=== PATIENT | male | born 1960 | race Hispanic/Latino ===

== ENCOUNTER 2019-01-10 10:42 | Emergency (ER) | payer OTHER ==
[~2019-01-10 10:42] MED LIST: CALC600T12 PO; LEVO137T24 PO; LISI10TA7 PO; LORA10TA7 PO; SILD50TA PO; albuterol hfa IH; fish oil PO; flonase NASAL
[2019-01-10 11:45] LABS: APPEARANCE,URINE Clear (CLEAR); BILIRUBIN,URINE Negative (NEGATIVE); COLOR,URINE Yellow (YELLOW); GLUCOSE, URINE (UA) 250 mg/dL (NEGATIVE); KETONES,URINE Negative (NEGATIVE); LEUKOCYTE ESTERASE ,URINE Negative (NEGATIVE); NITRATE,URINE Negative (NEGATIVE); OCCULT BLOOD,URINE Negative (NEGATIVE); PROTEIN,URINE POS 1+ (NEGATIVE); UROBILINOGEN,URINE 0.2 mg/dL (0.2-1.0)
[2019-01-10] MEDS ORDERED: SODIUM CHLORIDE 0.9% 1000ML 1,000 ML IV ONE (11:48)
[2019-01-10] MEDS ORDERED: ONDANSETRON HCL 4 MG/2 ML VIAL ONE (11:48)
[2019-01-10] MEDS ORDERED: ACETAMINOPHEN EXTRA STRENGTH 500 MG TABLET ONE (11:49)
[2019-01-10 11:56] LABS: BASOPHILS % (AUTO) 0.5 % (0.0-5.0); EOSINOPHILS % (AUTO) 1.8 % (0.0-8.0); HEMATOCRIT 48.8 % (42-54); MEAN CORPUSCULAR HEMOGLOBIN 30.6 pg (27.0-33.0); MEAN CORPUSCULAR HGB CONC 34.7 g/dL (32.0-36.0); MEAN CORPUSCULAR VOLUME 88.1 fL (79-99); MONOCYTES % (AUTO) 7.4 % (3.0-13.0); NEUTROPHILS % (AUTO) 79.3 % (40.0-77.0); PLATELET COUNT (AUTO) 327 K/uL (130-400); RED BLOOD CELL COUNT(AUTO) 5.54 MIL/uL (4.50-6.20); RED CELL DISTRIBUTION WIDTH 14.5 % (11.0-15.5); WHITE BLOOD COUNT (AUTO) 6.4 K/uL (4.8-10.8)
[2019-01-10 11:58] LABS: BACTERIA,URINE Rare /HPF (None Seen); MUCUS,URINE Moderate LPF (None Seen); RBC,URINE 0-1 /HPF (0-1); SQUAMOUS EPITHELIAL CELL,UR Rare /HPF (0-2); WBC,URINE 0-1 /HPF (0-1)
[2019-01-10 12:17] LABS: CREATININE 1.1 mg/dL (0.5-1.5); POTASSIUM 5.4 mmol/L (3.5-5.1)
[2019-01-10 12:21] LABS: BILIRUBIN,TOTAL 0.9 mg/dL (0.2-1.0); TOTAL PROTEIN, SERUM 8.6 g/dL (6.0-8.3)
[2019-01-10] MEDS ORDERED: IOHEXOL 350 MG/ML 100ML INFUS..BTL IV ONE (13:00)
[2019-01-10] MEDS ORDERED: LIDOCAINE HCL 2% VISCOUS 15 ML UDCUP ONE (14:26)
[2019-01-10] MEDS ORDERED: MAG HYDROX/AL HYDROX/SIMETH ES 30 ML SUSP UDCUP ONE (14:26)
[2019-01-10] MEDS ORDERED: KETOROLAC TROMETHAMINE 15MG/ML ONE (14:27)
== END 2019-01-10 15:30 | disposition home or self-care (01) ==
LOC: EDH 10:42
DX: J06.9 Acute upper respiratory infection, unspecified (principal); M79.605 Pain in left leg; M79.604 Pain in right leg; M54.9 Dorsalgia, unspecified; E11.9 Type 2 diabetes mellitus without complications; E78.5 Hyperlipidemia, unspecified; I10 Essential (primary) hypertension; J45.909 Unspecified asthma, uncomplicated; Z88.6 Allergy status to analgesic agent; Z88.1 Allergy status to other antibiotic agents
CPT/HCPCS: 36415; 71045; 74177; 80053; 81001; 83690; 84484; 85025; 87804 ×2; 93005; 96374; 96375; 99284; J1885; J2405; J7030; Q9967

== ENCOUNTER 2019-03-29 22:43 | Emergency (ER) | payer OTHER ==
[2019-03-29] MEDS ORDERED: METOCLOPRAMIDE 10 MG/2 ML VIAL ONE (23:19)
[2019-03-29] MEDS ORDERED: LOPERAMIDE HCL 2 MG CAP PO ONE (23:19)
[2019-03-29] MEDS ORDERED: DiphenhydrAMINE HCL 50 MG/ML VIAL ONE (23:20)
[2019-03-29] MEDS ORDERED: ONDANSETRON HCL 4 MG/2 ML VIAL ONE (23:20)
[2019-03-29] MEDS ORDERED: SODIUM CHLORIDE 0.9% 1000ML 2,000 ML IV ONE (23:20)
[2019-03-29] MEDS ORDERED: ONDANSETRON ODT 4 MG TAB ONE (23:47)
== END 2019-03-30 01:06 | disposition home or self-care (01) ==
LOC: EDH 22:43
DX: R19.7 Diarrhea, unspecified (principal); R10.84 Generalized abdominal pain; J45.909 Unspecified asthma, uncomplicated; E11.9 Type 2 diabetes mellitus without complications; I10 Essential (primary) hypertension; E78.5 Hyperlipidemia, unspecified; Z88.6 Allergy status to analgesic agent; Z88.1 Allergy status to other antibiotic agents
CPT/HCPCS: 82948; 96372 ×2; 99284; J1200; J7030; J2405; J2765

== ENCOUNTER 2019-11-05 02:55 | Emergency (ER) | payer OTHER ==
[2019-11-05] MEDS ORDERED: KETOROLAC TROMETHAMINE 30MG/ML ONE (06:04)
[2019-11-05 06:12] LABS: BASOPHILS % (AUTO) 0.9 % (0.0-5.0); EOSINOPHILS % (AUTO) 3.2 % (0.0-8.0); HEMATOCRIT 45.6 % (42-54); MEAN CORPUSCULAR HEMOGLOBIN 28.9 pg (27.0-33.0); MEAN CORPUSCULAR HGB CONC 33.6 g/dL (32.0-36.0); MEAN CORPUSCULAR VOLUME 86.2 fL (79-99); MONOCYTES % (AUTO) 10.5 % (3.0-13.0); PLATELET COUNT (AUTO) 250 K/uL (130-400); RED BLOOD CELL COUNT(AUTO) 5.29 MIL/uL (4.50-6.20); WHITE BLOOD COUNT (AUTO) 5.3 K/uL (4.8-10.8)
[2019-11-05 06:30] LABS: CREATININE 0.9 mg/dL (0.5-1.5); POTASSIUM 3.9 mmol/L (3.5-5.1)
[2019-11-05 06:34] LABS: INR 0.98 (0.85-1.15); PARTIAL THROMBOPLASTIN TIME 27.7 SEC (26.3-35.5); PROTHROMBIN TIME 10.3 SEC (9.6-11.6)
[2019-11-05 06:39] LABS: ALBUMIN 3.9 g/dL (3.5-5.0); BILIRUBIN,TOTAL 0.5 mg/dL (0.2-1.0); TOTAL PROTEIN, SERUM 7.7 g/dL (6.0-8.3)
[2019-11-05] MEDS ORDERED: LIDOCAINE 5% TOPICAL PATCH TP ONE (06:47)
[2019-11-05] MEDS ORDERED: ORPHENADRINE CITRATE 30 MG/ML ML ONE (07:35)
[2019-11-05] MEDS ORDERED: CLINDAMYCIN 600 MG/D5% WATER 50 ML IV ONE (07:36)
== END 2019-11-05 08:53 | disposition home or self-care (01) ==
LOC: EDH 02:55
DX: M54.89 Other dorsalgia (principal); I88.9 Nonspecific lymphadenitis, unspecified; I80.9 Phlebitis and thrombophlebitis of unspecified site; M62.838 Other muscle spasm; Z88.6 Allergy status to analgesic agent; Z88.0 Allergy status to penicillin; J45.909 Unspecified asthma, uncomplicated; E11.9 Type 2 diabetes mellitus without complications; I10 Essential (primary) hypertension; E78.5 Hyperlipidemia, unspecified; Z98.890 Other specified postprocedural states
CPT/HCPCS: 36415; 71045; 80053; 82550; 84484; 85025; 85610; 85730; 93005; 93971; 96365; 96375; 99285; J1885; J2360; J3490

== ENCOUNTER 2020-01-24 15:24 | Emergency (ER) | payer OTHER ==
[2020-01-24] MEDS ORDERED: ACETAMINOPHEN EXTRA STRENGTH 500 MG TABLET ONE (15:51)
[2020-01-24] MEDS ORDERED: ONDANSETRON HCL 4 MG/2 ML VIAL ONE (16:11)
[2020-01-24 16:22] LABS: BASOPHILS % (AUTO) 0.7 % (0.0-5.0); EOSINOPHILS % (AUTO) 0.3 % (0.0-8.0); HEMATOCRIT 45.2 % (42-54); MEAN CORPUSCULAR HEMOGLOBIN 30.1 pg (27.0-33.0); MEAN CORPUSCULAR HGB CONC 34.7 g/dL (32.0-36.0); MEAN CORPUSCULAR VOLUME 86.6 fL (79-99); MONOCYTES % (AUTO) 9.9 % (3.0-13.0); NEUTROPHILS % (AUTO) 71.8 % (40.0-77.0); PLATELET COUNT (AUTO) 296 K/uL (130-400); RED BLOOD CELL COUNT(AUTO) 5.22 MIL/uL (4.50-6.20); RED CELL DISTRIBUTION WIDTH 13.8 % (11.0-15.5); WHITE BLOOD COUNT (AUTO) 5.8 K/uL (4.8-10.8)
[2020-01-24 16:41] LABS: CREATININE 1.3 mg/dL (0.5-1.5); INR 0.98 (0.85-1.15); PARTIAL THROMBOPLASTIN TIME 27.4 SEC (26.3-35.5); POTASSIUM 3.8 mmol/L (3.5-5.1); PROTHROMBIN TIME 10.6 SEC (9.6-11.6)
[2020-01-24 16:46] LABS: BILIRUBIN,TOTAL 0.6 mg/dL (0.2-1.0); CRP QUANTITATIVE 13.8 mg/L (0.00-9.0); TOTAL PROTEIN, SERUM 8.3 g/dL (6.0-8.3)
[2020-01-24 16:53] LABS: RAPID GROUP A STREP NEGATIVE (NEGATIVE)
[2020-01-24] MEDS ORDERED: SODIUM CHLORIDE 0.9% 1000ML 1,000 ML IV ONE (17:02)
[2020-01-24 17:32] LABS: FERRITIN 435 ng/mL (30-400)
[2020-01-24] MEDS ORDERED: AZITHROMYCIN 250 MG TABLET PO ONE (18:22)
== END 2020-01-24 20:56 | disposition home or self-care (01) ==
LOC: EDH 15:24
DX: J18.9 Pneumonia, unspecified organism (principal); E11.65 Type 2 diabetes mellitus with hyperglycemia; Z20.828 Contact with and (suspected) exposure to other viral communicable diseases; J45.909 Unspecified asthma, uncomplicated; E78.5 Hyperlipidemia, unspecified; I10 Essential (primary) hypertension; Z88.6 Allergy status to analgesic agent; Z88.1 Allergy status to other antibiotic agents
CPT/HCPCS: 36415; 71045; 80053; 82550; 82728; 83605 ×2; 83615; 84484; 85025; 85378; 85610; 85730; 86140; 87040 ×2; 87633; 87635; 87804 ×2; 87880; 96361; 96374; 99291; J2405; J7030; 87486; 87581; 87798

== ENCOUNTER 2021-05-04 07:05 | Emergency (ER) | payer OTHER ==
[~2021-05-04] VITALS: Ht 170.2 cm; Wt 111.1 kg
[~2021-05-04 07:05] MED LIST changes: +CALC-1125 PO; -CALC600T12 PO; +LISI10TA24 PO; -LISI10TA7 PO
[2021-05-04 07:07] VITALS: BP 132/78
[2021-05-04] MEDS ORDERED: HYDROCODONE/ACETAMINOPHEN 5/325 MG TAB PO ONE (08:00)
[2021-05-04] MEDS ORDERED: KETOROLAC 15MG/ML VIAL (15MG/ML) IM ONE (08:00)
[2021-05-04] MEDS ORDERED: ACET1TAB25 PO (08:59)
[2021-05-04] MEDS ORDERED: LEVO750T46 PO (08:59)
[2021-05-04 09:34] VITALS: BP 145/80
== END 2021-05-04 09:35 | disposition home or self-care (01) ==
LOC: EDH 07:05
DX: J32.9 Chronic sinusitis, unspecified (principal); E10.9 Type 1 diabetes mellitus without complications; J45.909 Unspecified asthma, uncomplicated; E03.9 Hypothyroidism, unspecified; G43.909 Migraine, unspecified, not intractable, without status migrainosus; Z20.822 Contact with and (suspected) exposure to COVID-19; Z98.890 Other specified postprocedural states; Z88.1 Allergy status to other antibiotic agents; Z88.6 Allergy status to analgesic agent; Z88.8 Allergy status to other drugs, medicaments and biological substances; Z79.899 Other long term (current) drug therapy
CPT/HCPCS: 87635; 87804 ×2; 87880; 96372; 99283; C9803; J1885

== ENCOUNTER 2021-09-19 09:21 | Emergency (ER) | payer OTHER ==
[~2021-09-19] VITALS: Ht 170.2 cm; Wt 111.1 kg
[~2021-09-19 09:21] MED LIST changes: +ACET1TAB25 PO; +LEVO750T46 PO
[2021-09-19] MEDS ORDERED: ACETAMINOPHEN 325 MG TAB PO ONE (09:30)
[2021-09-19 09:38] LABS: BASOPHILS % (AUTO) 0.6 % (0.0-5.0); EOSINOPHILS % (AUTO) 1.5 % (0.0-8.0); HEMATOCRIT 45.6 % (42-54); LYMPHOCYTES % (AUTO) 12.3 % (21.0-51.0); MEAN CORPUSCULAR HEMOGLOBIN 29.4 pg (27.0-33.0); MEAN CORPUSCULAR VOLUME 86.4 fL (79-99); MONOCYTES % (AUTO) 9.7 % (3.0-13.0); PLATELET COUNT (AUTO) 247 K/uL (130-400); RED BLOOD CELL COUNT(AUTO) 5.28 MIL/uL (4.50-6.20); RED CELL DISTRIBUTION WIDTH 16.6 % (11.0-15.5); WHITE BLOOD COUNT (AUTO) 5.5 K/uL (4.8-10.8)
[2021-09-19] MEDS: NITROGLYCERIN 0.4 MG SL TAB SL PRN ×2 (09:41→09:50)
[2021-09-19 09:53] LABS: CREATININE 1.2 mg/dL (0.5-1.5); POTASSIUM 3.9 mmol/L (3.5-5.1)
[2021-09-19 09:55] LABS: INR 1.1 (0.85-1.15); PROTHROMBIN TIME 11.9 SEC (9.6-11.6)
[2021-09-19 09:56] LABS: PARTIAL THROMBOPLASTIN TIME 30.6 SEC (26.3-35.5)
[2021-09-19 10:01] LABS: APPEARANCE,URINE Clear (CLEAR); BILIRUBIN,URINE Negative (NEGATIVE); COLOR,URINE Yellow (YELLOW); GLUCOSE, URINE (UA) >=1000 mg/dL (NEGATIVE); KETONES,URINE Trace mg/dL (NEGATIVE); LEUKOCYTE ESTERASE ,URINE Negative (NEGATIVE); NITRATE,URINE Negative (NEGATIVE); OCCULT BLOOD,URINE Negative (NEGATIVE); PROTEIN,URINE POS 1+ mg/dL (NEGATIVE); UROBILINOGEN,URINE 0.2 mg/dL (0.2-1.0)
[2021-09-19 10:03] LABS: ALBUMIN 4.1 g/dL (3.5-5.0); BILIRUBIN,TOTAL 0.6 mg/dL (0.2-1.0); TOTAL PROTEIN, SERUM 8.2 g/dL (6.0-8.3)
[2021-09-19 10:09] LABS: B-TYPE NATRIURETIC PEPTIDE 5 pg/mL (0-100)
[2021-09-19 10:09] LABS: AMPHET/METH SCREEN,URINE NEGATIVE (NEGATIVE); BARBITURATE SCREEN, URINE NEGATIVE (NEGATIVE); BENZODIAZEPINES SCREEN,URINE NEGATIVE (NEGATIVE); CANNABINOID SCREEN,URINE NEGATIVE (NEGATIVE); COCAINE SCREEN,URINE NEGATIVE (NEGATIVE); OPIATE SCREEN,URINE POSITIVE (NEGATIVE); PHENCYCLIDINE SCREEN,URINE NEGATIVE (NEGATIVE)
[2021-09-19 10:12] LABS: BACTERIA,URINE Rare /HPF (None Seen); MUCUS,URINE Rare LPF (None Seen); RBC,URINE 0-1 /HPF (0-1); SQUAMOUS EPITHELIAL CELL,UR Rare /HPF (0-2); WBC,URINE 0-1 /HPF (0-1)
[2021-09-19] MEDS ORDERED: ONDANSETRON 4MG INJ ONE (10:37)
[2021-09-19] MEDS ORDERED: MORPHINE 2 MG SYG ONE (10:38)
[2021-09-19] MEDS ORDERED: ONDANSETRON 4MG INJ IVP ONE (11:00)
[2021-09-19] MEDS ORDERED: MORPHINE 2 MG SYG IM ONE (11:00)
[2021-09-19] MEDS ORDERED: ACET-66 PO (11:36)
[2021-09-19] MEDS ORDERED: AZIT500T4 PO (11:50)
[2021-09-19 12:01] VITALS: BP 109/54
== END 2021-09-19 12:16 | disposition home or self-care (01) ==
LOC: EDH 09:21
DX: J40 Bronchitis, not specified as acute or chronic (principal); G89.29 Other chronic pain; M79.7 Fibromyalgia; Z20.822 Contact with and (suspected) exposure to COVID-19; E03.9 Hypothyroidism, unspecified; E11.9 Type 2 diabetes mellitus without complications; E78.00 Pure hypercholesterolemia, unspecified; Z88.0 Allergy status to penicillin; Z88.5 Allergy status to narcotic agent; Z88.6 Allergy status to analgesic agent; Z88.8 Allergy status to other drugs, medicaments and biological substances; Z79.899 Other long term (current) drug therapy
CPT/HCPCS: 36415; 71045; 80053; 80305; 81001; 82550; 83605; 83874; 83880; 84484 ×2; 85025; 85610; 85730; 87040 ×2; 87088; 87635; 87804 ×2; 87880; 93005 ×2; 96372; 96374; 99285; C9803; J2405

== ENCOUNTER 2021-12-19 10:45 | Emergency (ER) | payer OTHER ==
[~2021-12-19] VITALS: Ht 170.2 cm; Wt 113.4 kg
[~2021-12-19 10:45] MED LIST changes: +ACET-66 PO; +AZIT500T4 PO
[2021-12-19 10:49] VITALS: BP 124/88
[2021-12-19] MEDS ORDERED: 0.9%NACL 1000ML 1,000 ML IV SCH (12:30)
[2021-12-19] MEDS ORDERED: ACETAMINOPHEN 500 MG TABLET PO SCH (12:30)
[2021-12-19] MEDS ORDERED: ONDANSETRON 4MG INJ IVP SCH (12:30)
[2021-12-19] MEDS ORDERED: FAMOTIDINE 20MG VIAL IV SCH (12:30)
[2021-12-19] MEDS ORDERED: ONDANSETRON 4MG INJ ONE (12:40)
[2021-12-19] MEDS ORDERED: ACETAMINOPHEN 500 MG TABLET ONE (12:41)
[2021-12-19] MEDS ORDERED: 0.9%NACL 1000ML 1,000 ML IV ONE (12:43)
[2021-12-19 13:35] LABS: APPEARANCE,URINE CLEAR (CLEAR); BILIRUBIN,URINE NEGATIVE (NEGATIVE); COLOR,URINE YELLOW (YELLOW); GLUCOSE, URINE (UA) >=1000 mg/dL (NEGATIVE); KETONES,URINE 15 mg/dL (NEGATIVE); LEUKOCYTE ESTERASE ,URINE NEGATIVE (NEGATIVE); NITRATE,URINE NEGATIVE (NEGATIVE); OCCULT BLOOD,URINE SMALL (NEGATIVE); PH,URINE 5.5 (5.0-8.0); PROTEIN,URINE 100 mg/dL (NEGATIVE); UROBILINOGEN,URINE 0.2 mg/dL (0.2-1.0)
[2021-12-19 13:40] LABS: BACTERIA,URINE Rare /HPF (None Seen); MUCUS,URINE Rare LPF (None Seen); RBC,URINE 0-1 /HPF (0-1); SQUAMOUS EPITHELIAL CELL,UR Rare /HPF (0-2); WBC,URINE 0-1 /HPF (0-1)
[2021-12-19] MEDS ORDERED: ONDA4TAB10 PO (16:01)
[2021-12-19] MEDS ORDERED: ACET-66 PO (16:01)
[2021-12-19] MEDS ORDERED: CETI10TA57 PO (16:01)
== END 2021-12-19 16:14 | disposition home or self-care (01) ==
LOC: EDH 10:45
DX: J10.1 Influenza due to other identified influenza virus with other respiratory manifestations (principal); Z20.822 Contact with and (suspected) exposure to COVID-19; E78.00 Pure hypercholesterolemia, unspecified; I10 Essential (primary) hypertension; J45.909 Unspecified asthma, uncomplicated; E03.9 Hypothyroidism, unspecified; Z88.0 Allergy status to penicillin; Z88.5 Allergy status to narcotic agent; Z88.6 Allergy status to analgesic agent; Z88.8 Allergy status to other drugs, medicaments and biological substances; Z79.899 Other long term (current) drug therapy
CPT/HCPCS: 74176; 81001; 87635; 87804 ×2; 87880; 96374; 96375; 99284; C9803; J2405; J7030

== ENCOUNTER 2022-01-07 23:02 | Emergency (ER) | payer OTHER ==
[~2022-01-07] VITALS: Ht 170.2 cm; Wt 115.7 kg
[~2022-01-07 23:02] MED LIST changes: +CETI10TA57 PO; +ONDA4TAB10 PO
[2022-01-07 23:48] LABS: BASOPHILS % (AUTO) 0.7 % (0.0-5.0); HEMATOCRIT 49.1 % (42-54); LYMPHOCYTES % (AUTO) 43.8 % (21.0-51.0); MEAN CORPUSCULAR HEMOGLOBIN 29.9 pg (27.0-33.0); MEAN CORPUSCULAR HGB CONC 32.8 g/dL (32.0-36.0); MEAN CORPUSCULAR VOLUME 91.3 fL (79-99); MONOCYTES % (AUTO) 15.5 % (3.0-13.0); NEUTROPHILS % (AUTO) 37.4 % (40.0-77.0); PLATELET COUNT (AUTO) 367 K/uL (130-400); RED BLOOD CELL COUNT(AUTO) 5.38 MIL/uL (4.50-6.20); WHITE BLOOD COUNT (AUTO) 5.4 K/uL (4.8-10.8)
[2022-01-07 23:52] LABS: APPEARANCE,URINE Clear (CLEAR); BILIRUBIN,URINE Negative (NEGATIVE); COLOR,URINE Yellow (YELLOW); GLUCOSE, URINE (UA) >=1000 mg/dL (NEGATIVE); KETONES,URINE Negative (NEGATIVE); LEUKOCYTE ESTERASE ,URINE Negative (NEGATIVE); NITRATE,URINE Negative (NEGATIVE); OCCULT BLOOD,URINE Negative (NEGATIVE); PH,URINE 5.5 (5.0-8.0); PROTEIN,URINE Negative (NEGATIVE); UROBILINOGEN,URINE 0.2 mg/dL (0.2-1.0)
[2022-01-07 23:59] LABS: CREATININE 1.1 mg/dL (0.5-1.5); POTASSIUM 4.3 mmol/L (3.5-5.1)
[2022-01-08 00:04] LABS: ALBUMIN 4.1 g/dL (3.5-5.0); BILIRUBIN,TOTAL 0.5 mg/dL (0.2-1.0); TOTAL PROTEIN, SERUM 8.7 g/dL (6.0-8.3)
[2022-01-08] MEDS ORDERED: CEFD300C3 PO (01:08)
[2022-01-08] MEDS ORDERED: AMOX1TAB15 PO (01:08)
[2022-01-08] MEDS ORDERED: ACET-66 PO (01:08)
[2022-01-08] MEDS ORDERED: BENZ-70 PO (01:08)
[2022-01-08] MEDS ORDERED: SODI44SP13 NS (01:15)
[2022-01-08] MEDS ORDERED: PHEN177S49 MM (01:15)
[2022-01-08] MEDS ORDERED: NYST5ORA7 PO (01:41)
[2022-01-08 01:54] VITALS: BP 132/83
== END 2022-01-08 01:55 | disposition home or self-care (01) ==
LOC: EDH 23:02
DX: J02.9 Acute pharyngitis, unspecified (principal); J32.9 Chronic sinusitis, unspecified; M79.10 Myalgia, unspecified site; M25.50 Pain in unspecified joint; Z20.822 Contact with and (suspected) exposure to COVID-19; E11.9 Type 2 diabetes mellitus without complications; E03.9 Hypothyroidism, unspecified; E78.00 Pure hypercholesterolemia, unspecified; I10 Essential (primary) hypertension; J45.909 Unspecified asthma, uncomplicated; Z79.899 Other long term (current) drug therapy; Z88.0 Allergy status to penicillin; Z88.5 Allergy status to narcotic agent; Z88.6 Allergy status to analgesic agent; Z88.8 Allergy status to other drugs, medicaments and biological substances
CPT/HCPCS: 36415; 71045; 80053; 81003; 82550; 83605; 84145; 84484; 85025; 86140; 86308; 87040 ×2; 87635; 87804 ×2; 87880; 99284; C9803

== ENCOUNTER 2022-08-01 09:44 | Emergency (ER) | payer OTHER ==
[~2022-08-01] VITALS: Ht 170.2 cm; Wt 115.7 kg
[~2022-08-01 09:44] MED LIST changes: +ACET-2079 PO; -ACET1TAB25 PO; +AMOX1TAB15 PO; +BENZ-70 PO; +CEFD300C3 PO; -LEVO750T46 PO; +LEVO750T68 PO; +NYST5ORA7 PO; +PHEN177S49 MM; +SODI44SP13 NS
[2022-08-01 09:49] VITALS: BP 161/87
[2022-08-01 12:06] LABS: APPEARANCE,URINE CLEAR (CLEAR); BILIRUBIN,URINE NEGATIVE (NEGATIVE); COLOR,URINE LIGHT-YELLOW (YELLOW); GLUCOSE, URINE (UA) >=1000 mg/dL (NEGATIVE); KETONES,URINE NEGATIVE (NEGATIVE); LEUKOCYTE ESTERASE ,URINE NEGATIVE Leu/uL (NEGATIVE); NITRATE,URINE NEGATIVE (NEGATIVE); OCCULT BLOOD,URINE NEGATIVE (NEGATIVE); PH,URINE 5.5 (5.0-8.0); PROTEIN,URINE NEGATIVE (NEGATIVE); UROBILINOGEN,URINE 0.2 mg/dL (0.2-1.0)
[2022-08-01 12:10] LABS: RBC,URINE 0-1 /HPF (0-1); WBC,URINE 0-1 /HPF (0-1)
[2022-08-01] MEDS ORDERED: CLINDAMYCIN IVPB 600MG/50ML 50 ML IV SCH (13:30)
== END 2022-08-01 13:10 | disposition left against medical advice (07) ==
LOC: EDH 09:44
DX: R59.0 Localized enlarged lymph nodes (principal); J45.909 Unspecified asthma, uncomplicated; E11.9 Type 2 diabetes mellitus without complications; I10 Essential (primary) hypertension; E03.9 Hypothyroidism, unspecified; Z98.890 Other specified postprocedural states; Z79.899 Other long term (current) drug therapy; Z88.1 Allergy status to other antibiotic agents; Z88.6 Allergy status to analgesic agent; Z88.8 Allergy status to other drugs, medicaments and biological substances
CPT/HCPCS: 81001; 87880

== ENCOUNTER → 2022-10-07 | Outpatient (CLI) | payer OTHER | END | disposition home or self-care (01) | LOC: RAH 11:11 | PROVIDERS: ATTEND Otolaryngology Plastic Surgery within the Head & Neck | DX: R22.1 Localized swelling, mass and lump, neck (principal) | CPT/HCPCS: 76536 ==

== ENCOUNTER → 2023-02-11 | Outpatient (CLI) | payer OTHER ==
[~2023-02-11] MED LIST changes: +BENZ-226 PO; -BENZ-70 PO
[2023-02-11 08:39] LABS: INR 1.05 (0.85-1.15); PROTHROMBIN TIME 11.4 SEC (9.6-11.6)
[2023-02-11 08:40] LABS: PARTIAL THROMBOPLASTIN TIME 30.9 SEC (26.3-35.5)
== END | disposition home or self-care (01) ==
LOC: RAH 08:05
PROVIDERS: ATTEND Otolaryngology Plastic Surgery within the Head & Neck
DX: R59.0 Localized enlarged lymph nodes (principal); Z79.01 Long term (current) use of anticoagulants
CPT/HCPCS: 36415; 38505; 76942; 85610; 85730; 88184; 88185; 88305

== ENCOUNTER → 2023-03-06 | Outpatient (CLI) | payer OTHER | END | disposition home or self-care (01) | LOC: OIH 13:54 | PROVIDERS: ATTEND Internal Medicine Cardiovascular Disease | DX: Z13.6 Encounter for screening for cardiovascular disorders (principal) | CPT/HCPCS: 75571 ==

== ENCOUNTER → 2023-08-25 | Outpatient (CLI) | payer OTHER | END | disposition home or self-care (01) | LOC: SHCH 14:50 | PROVIDERS: ATTEND Internal Medicine Cardiovascular Disease | DX: I87.2 Venous insufficiency (chronic) (peripheral) (principal); I73.9 Peripheral vascular disease, unspecified; R07.89 Other chest pain; I10 Essential (primary) hypertension; Z79.899 Other long term (current) drug therapy | CPT/HCPCS: 93970 ==